=== PATIENT | female | born 1955 | race Two or more races ===

== ENCOUNTER 2024-08-06 16:33 | Inpatient (IN) | payer OTHER ==
[~2024-08-06] VITALS: Ht 157.5 cm; Wt 81.6 kg
[2024-08-06] MEDS ORDERED: COZAAR25 MG PO (16:49)
[2024-08-06] MEDS ORDERED: ATORVASTATIN CA10 MG PO (16:49)
[2024-08-06] MEDS ORDERED: 0.9 % SODIUM CHLORIDE 1,000 ML IV STA (17:36)
[2024-08-06 18:00] LABS: HEMATOCRIT 43.5 % (36.0-45.00); HEMOGLOBIN 14.8 g/dL (12.0-15.00); MEAN CELL VOLUME 91.8 fL (80.00-100.00); MEAN CORPUSCULAR HEMOGLOBIN 31.1 pg (27.00-32.0); MEAN CORPUSCULAR HGB CONC 33.9 g/dl (32.0-36.0); PLATELET COUNT 231 K/uL (150-450); RED BLOOD COUNT 4.74 M/uL (4.00-6.00); RED CELL DISTRIBUTION WIDTH 12.2 % (11.5-14.5)
[2024-08-06 18:27] LABS: INR 1.1; PARTIAL THROMBOPLASTIN TIME 25.5 SECONDS (22.0-34.0); PROTHROMBIN TIME 11.9 SECONDS (9.0-11.5)
[2024-08-06 18:30] LABS: ALBUMIN 4.1 gm/dL (3.4-5.0); BILIRUBIN TOTAL 0.84 mg/dL (0.3-1.2); CALCIUM 9.4 mg/dL (8.5-10.1); CREATININE SERUM 0.71 mg/dL (0.55-1.02); GFR 81.86; POTASSIUM 3.93 mEq/L (3.5-5.1); TOTAL PROTEIN 7.1 gm/dL (6.4-8.2)
[2024-08-06] MEDS ORDERED: ASPIRIN 81 MG TAB.CHEW PO SCH (19:41)
[2024-08-06] MEDS ORDERED: ATORVASTATIN CALCIUM 40 MG TABLET PO SCH (19:41)
[2024-08-06] MEDS ORDERED: 0.9 % SODIUM CHLORIDE 1,000 ML IV SCH (19:45)
[2024-08-06 21:53] VITALS: BP 148/62; O2SAT 98
[2024-08-06 23:58] VITALS: BP 153/66; O2SAT 96
[2024-08-07] VITALS (7 sets, daily range): BP systolic 135–147; BP diastolic 69–77; O2SAT 90–98
[2024-08-07] MEDS ORDERED: ACETAMINOPHEN 500 MG GEL..CAP PO ONE ×2 (00:11→00:16)
[2024-08-07] MEDS ORDERED: FAMOTIDINE/PF 20 MG/2 ML VIAL ONE (00:12)
[2024-08-07 00:42] LABS: PH,URINE 7.5 (5.0-8.0); URINE APPEARANCE Clear; URINE BILIRRUBIN Negative (NEGATIVE); URINE COLOR Yellow; URINE LEUKOCYTE Negative; URINE NITRATE Negative; URINE PROTEIN Trace (NEGATIVE)
[2024-08-07 00:47] LABS: URINE EPITHELIAL CELLS 3.1 uL (0.0-38.8); URINE RBC 146.4 uL (0.0-20.8); URINE WBC 6.4 uL (0.0-23.2)
[2024-08-07 00:55] LABS: URINE BLOOD TRACES; URINE GLUCOSE 100 MG/DL (NEGATIVE); URINE KETONE 40 (NEGATIVE)
[2024-08-07] MEDS ORDERED: FAMOTIDINE/PF 20 MG/2 ML VIAL IV STA (01:03)
[2024-08-07] MEDS ORDERED: ACETAMINOPHEN 500 MG GEL..CAP PO STA (01:03)
[2024-08-07] MEDS ORDERED: FLUOXETINE HCL 20 MG CAPSULE PO SCH (09:00)
[2024-08-07] MEDS ORDERED: LOSARTAN/HYDROCHLOROTHIAZIDE 1 UDTAB TABLET PO SCH (09:00)
[2024-08-07] MEDS ORDERED: FAMOTIDINE/PF 20 MG in 0.9 % SODIUM CHLORIDE 8 ML IV PUSH SCH (09:00)
[2024-08-07 19:20] LABS: FECAL LEUKOCYTES NEGATIVE (NEGATIVE)
[2024-08-08] VITALS (9 sets, daily range): BP systolic 141–155; BP diastolic 71–81; O2SAT 90–99
[2024-08-09 00:25] VITALS: O2SAT 95
[2024-08-09 03:13] VITALS: BP 126/70; O2SAT 97
[2024-08-09 05:45] VITALS: O2SAT 95
[2024-08-09 08:39] VITALS: O2SAT 98
[2024-08-09 10:31] VITALS: BP 128/75; O2SAT 95
== END 2024-08-09 15:11 | disposition home or self-care (01) | DRG 69 ==
LOC: ER 16:35 → SEC-K 20:15 → MEDI 20:15
PROVIDERS: General Practice; ADMIT Internal Medicine; ATTEND Internal Medicine
PROC: B020ZZZ Computerized Tomography (CT Scan) of Brain (ICD-10-PCS; principal; 2024-08-06)
PROC: B030ZZZ Magnetic Resonance Imaging (MRI) of Brain (ICD-10-PCS; 2024-08-06)
PROC: B24BYZZ Ultrasonography of Heart with Aorta using Other Contrast (ICD-10-PCS; 2024-08-06)
PROC: B345ZZZ Ultrasonography of Bilateral Common Carotid Arteries (ICD-10-PCS; 2024-08-06)
PROC: 4A12X4Z Monitoring of Cardiac Electrical Activity, External Approach (ICD-10-PCS; 2024-08-07)
DX: G45.9 Transient cerebral ischemic attack, unspecified (principal); R55 Syncope and collapse
CPT/HCPCS: 70544